=== PATIENT | female | born 1980 | race Asian ===

== ENCOUNTER → 2018-02-26 | Outpatient (CLI) | payer OTHER ==
[~2018-02-26] MED LIST: NEXPLANON68 MG ID
[2018-02-26 17:43] LABS: ALBUMIN 4.2 gm/dL (3.5-5.0); BILIRUBIN,TOTAL 0.7 mg/dL (0.0-1.0); CALCIUM 9.1 mg/dL (8.4-10.2); CREATININE, serum 0.51 mg/dL (0.52-1.25); POTASSIUM 4.1 mmol/L (3.4-5.0); TOTAL PROTEIN 7.8 gm/dL (6.4-8.2)
[2018-02-26 18:13] LABS: THYROID STIMULATING HORMONE 2.05 uIU/mL (0.465-4.680)
== END ==
LOC: ZCOL.LAB 17:23
PROVIDERS: Family Medicine
DX: E66.9 Obesity, unspecified (principal)

== ENCOUNTER → 2018-02-26 | Outpatient (CLI) | payer OTHER ==
[~2018-02-26] VITALS: Ht 157.5 cm; Wt 67.8 kg
[2018-02-26 16:25] VITALS: BP 88/50; PULSE 60
== END ==
LOC: LIGHT 08:44
DX: E66.3 Overweight (principal); Z68.27 Body mass index [BMI] 27.0-27.9, adult; Z71.3 Dietary counseling and surveillance
CPT/HCPCS: G0463

== ENCOUNTER 2018-03-30 19:16 | Emergency (ER) | payer OTHER ==
[~2018-03-30] VITALS: Ht 158 cm; Wt 59.1 kg
[2018-03-30] MEDS ORDERED: ANUSOL-HC SUPPO25 MG RC (20:09)
[2018-03-30] MEDS ORDERED: MIRALAX238G PO (20:09)
[2018-03-30] MEDS ORDERED: LIDO2%GEL TOP (20:09)
[2018-03-30] MEDS ORDERED: COLACE 100100 MG/CAP PO (20:09)
[2018-03-30 20:32] VITALS: BP 102/79; PULSE 87; TEMP 97.9
== END 2018-03-30 20:34 | disposition home or self-care (01) ==
LOC: COL.ER 19:16
DX: K62.5 Hemorrhage of anus and rectum (principal)